=== PATIENT | female | born 2000 | race Two or more races ===

== ENCOUNTER 2018-04-27 00:29 | Emergency (ER) | payer OTHER ==
--- NOTE | 2018-04-27 00:44 | ED ---
Lower Extremity - HPI Summary HPI Summary: 18 year old female presents with right ankle pain today. She states she rolled her ankle. She inverted it. She denies any numbness or tingling. She is able to walk. She states she's been placing huong on the area. She denies any knee pain. No other injury. She denies any previous fractures to the ankle. - History of Current Complaint Chief Complaint: EDExtremityLower Stated Complaint: RT ANKLE INJURY Time Seen by Provider: 04/27/18 00:39 Pain Intensity: 3 - Allergies/Home Medications Allergies/Adverse Reactions: Allergies Allergy/AdvReac Type Severity Reaction Status Date / Time No Known Allergies Allergy Verified 04/27/18 00:34 PMH/Surg Hx/FS Hx/Imm Hx Endocrine/Hematology History: Denies: Hx Anticoagulant Therapy Respiratory History: Denies: Hx Asthma Infectious Disease History: No Infectious Disease History: Denies: Traveled Outside the [place] in Last 30 Days - Family History Known Family History: Positive: Non-Contributory - Social History Alcohol Use: Occasionally Substance Use Type: Reports: None Smoking Status (MU): Never Smoked Tobacco Review of Systems Negative: Fever Negative: Chest Pain Negative: Shortness Of Breath Positive: Myalgia - right ankle pain All Other Systems Reviewed And Are Negative: Yes Physical Exam Triage Information Reviewed: Yes Vital Signs On Initial Exam: Initial Vitals Temp Pulse Resp BP Pulse Ox 98.4 F 60 16 121/95 100 04/27/18 00:30 04/27/18 00:30 04/27/18 00:30 04/27/18 00:30 04/27/18 00:30 Vital Signs Reviewed: Yes Appearance: Positive: Well-Appearing Skin: Positive: Warm, Dry Head/Face: Positive: Normal Head/Face Inspection Eyes: Positive: Normal, Conjunctiva Clear ENT: Positive: Pharynx normal Respiratory/Lung Sounds: Positive: Clear to Auscultation, Breath Sounds Present Cardiovascular: Positive: Normal, RRR Musculoskeletal: Positive: Strength/ROM Intact - right ankle, Other - tenderness over lateral right ankle, good pulses, capillary refill<2 secs Neurological: Positive: Normal Psychiatric: Positive: Normal Diagnostics - Vital Signs Vital Signs Temp Pulse Resp BP Pulse Ox 04/27/18 00:30 98.4 F 60 16 121/95 100 - Laboratory Lab Statement: Any lab studies that have been ordered have been reviewed, and results considered in the medical decision making process. - Radiology ankle Radiology Interpretation Completed By: ED Physician Summary of Radiographic Findings: no fracture Lower Extremity Course/Dx - Course Course Of Treatment: 18 year old female presents with right ankle pain today. She states she rolled her ankle. She inverted it. She denies any numbness or tingling. She is able to walk. She states she's been placing huong on the area. She denies any knee pain. No other injury. She denies any previous fractures to the ankle. On exam tenderness over the right lateral malleolus of the ankle. Neurovascular intact. X-ray normal. We'll treat with rice. patient has an huong. Patient understands agrees with plan. - Diagnoses Differential Diagnosis/HQI/PQRI: Positive: Fracture (Closed), Sprain, Strain Provider Diagnoses: Right ankle injury Discharge - Sign-Out/Discharge Documenting (check all that apply): Patient Departure - Discharge Plan Condition: Good Disposition: HOME Patient Education Materials: Ankle Sprain (ED) Referrals: No Primary Care Phys,NOPCP [Primary Care Provider] - Additional Instructions: Stay off ankle as much as possible Ice, elevate, keep in HUONG Ibuprofen every 6 hours for pain Follow up with health center if no improvement Return to ED if develop or any new or worsening symptoms - Billing Disposition and Condition Condition: GOOD Disposition: Home
[2018-04-27 01:21] VITALS: BP 119/82
== END 2018-04-27 01:14 | disposition home or self-care (01) ==
LOC: ED 00:29
DX: S99.911A Unspecified injury of right ankle, initial encounter (principal); M25.571 Pain in right ankle and joints of right foot; X50.9XXA Other and unspecified overexertion or strenuous movements or postures, initial encounter; Y92.9 Unspecified place or not applicable
CPT/HCPCS: 99281